=== PATIENT | female | born 1990 | race Caucasian/White ===

== ENCOUNTER 2022-07-04 10:50 | Observation (INO) | payer MEDICAID ==
[~2022-07-04] VITALS: Ht 154.9 cm; Wt 71.7 kg
== END 2022-07-04 11:35 | disposition home or self-care (01) ==
LOC: SPU 10:50
PROVIDERS: ADMIT Obstetrics & Gynecology; ATTEND Obstetrics & Gynecology
DX: O62.9 Abnormality of forces of labor, unspecified (principal); Z3A.38 38 weeks gestation of pregnancy
CPT/HCPCS: 81002; G0378; G0379

== ENCOUNTER 2022-07-08 08:32 | Inpatient (IN) | payer MEDICAID ==
[~2022-07-08] VITALS: Ht 154.9 cm; Wt 83.9 kg
[2022-07-08] MEDS ORDERED: OXYTOCIN/0.9 % SODIUM CHLORIDE 1,000 ML IV SCH (10:45)
[2022-07-08] MEDS ORDERED: LR 1,000 ML IV SCH (10:45)
[2022-07-08] MEDS ORDERED: LR 1,000 ML IV ONE (10:45)
[2022-07-08] MEDS ORDERED: TERBUTALINE SULFATE 1 MG/ML VIAL SUBCUT ONE (10:45)
[2022-07-08] MEDS ORDERED: AMPICILLIN SODIUM 2 GM in NS 100 ML IV ONE (10:45)
[2022-07-08 11:11] LABS: BASOPHILS # (AUTO) 0.1 K/uL (0.0-0.2); BASOPHILS % (AUTO) 0.5 % (0.0-2.0); EOSINOPHILS % (AUTO) 0.1 % (0.0-4.0); HEMATOCRIT 40.2 % (36-48); LYMPHOCYTES # (AUTO) 1.3 K/uL (1.0-5.5); LYMPHOCYTES % (AUTO) 11.8 % (20.5-51.5); MEAN CORPUSCULAR HEMOGLOBIN 32 pg (27-31); MEAN CORPUSCULAR HGB CONC 35 % (32-36); MEAN CORPUSCULAR VOLUME 93 fL (79.0-98.0); MONOCYTES # (AUTO) 0.6 K/uL (0.0-1.0); MONOCYTES % (AUTO) 5.4 % (1.7-9.3); NEUTROPHILS % (AUTO) 82.2 % (40.0-70.0); PLATELET COUNT (AUTO) 240 K/uL (130-430); RED BLOOD CELL COUNT(AUTO) 4.33 MIL/uL (4.2-6.2); RED CELL DISTRIBUTION WIDTH 13.1 % (9.0-15.0)
[2022-07-08] MEDS ORDERED: AMPICILLIN SODIUM 1 GM in NS 50 ML IV SCH (15:00)
[2022-07-08] MEDS ORDERED: FLU VACC QS2022-23(6MOS UP)/PF 0.5 ML/SYR SYRINGE I.M. PRN (17:15)
[2022-07-08 17:20] VITALS: BP_SYST 121
[2022-07-08] MEDS ORDERED: NALBUPHINE HCL 10 MG/ML AMP ONE (17:26)
[2022-07-08] MEDS ORDERED: NALBUPHINE HCL 10 MG/ML AMP IVP PRN (17:45)
[2022-07-08] MEDS ORDERED: LIGHT MINERAL OIL 10 ML VIAL MC ONE (18:10)
[2022-07-08] MEDS ORDERED: NALOXONE HCL 0.4 MG/ML AMP (NARCAN) ONE (18:11)
[2022-07-08] MEDS ORDERED: LIDOCAINE PF 1% 30ML(POUR BTL) INJ ONE (18:11)
[2022-07-08] MEDS ORDERED: HYDROcodone/ACETAMIN 5-325 MG TAB (NORCO/ VICODIN) PO PRN ×2 (19:15)
[2022-07-08] MEDS ORDERED: OXYCODONE/ACETAMINOPHEN 5-325 TABLET PO PRN ×4 (19:15)
[2022-07-09] MEDS ORDERED: WITCH HAZEL LEAF 1 MED.PAD MED.PAD TP PRN
[2022-07-09] MEDS ORDERED: DERMOPLAST SPRAY TP PRN
[2022-07-09] MEDS: IBUPROFEN 600 MG TABLET PO SCH ×4 (00:24→18:14)
[2022-07-09 07:47] LABS: HEMATOCRIT 36.7 % (36-48); HEMOGLOBIN 12.4 g/dL (12.0-16.0)
[2022-07-09] MEDS ORDERED: DOCUSATE SODIUM 100 MG CAPSULE PO SCH (09:00)
[2022-07-09] MEDS ORDERED: DOCUSATE SODIUM 100 MG CAPSULE PO ONE (09:53)
[2022-07-10] MEDS: IBUPROFEN 600 MG TABLET PO SCH ×3 (00:07→12:04)
[2022-07-10] MEDS ORDERED: DIPHTH,PERTUSS(ACELL),TET VAC 0.5 ML VIAL (Tdap) I.M. PRN (11:15)
== END 2022-07-10 13:35 | disposition home or self-care (01) | DRG 560 ==
LOC: SPU 08:32 → OBSVTOIN 08:32
PROVIDERS: ADMIT Obstetrics & Gynecology; ATTEND Obstetrics & Gynecology
PROC: 10E0XZZ Delivery of Products of Conception, External Approach (ICD-10-PCS; principal; 2022-07-08)
PROC: 0W8NXZZ Division of Female Perineum, External Approach (ICD-10-PCS; 2022-07-08)
PROC: 3E0234Z Introduction of Serum, Toxoid and Vaccine into Muscle, Percutaneous Approach (ICD-10-PCS; 2022-07-10)
DX: O69.1XX0 Labor and delivery complicated by cord around neck, with compression, not applicable or unspecified (principal); Z37.0 Single live birth; Z20.822 Contact with and (suspected) exposure to COVID-19; Z3A.39 39 weeks gestation of pregnancy
CPT/HCPCS: 36415; 81002; 85018; 85025; 86592; 86886; 86900; 86901; 90715; J0290; J2001; J2300; J2310